=== PATIENT | female | born 1985 | race Caucasian/White ===

== ENCOUNTER 2021-10-12 09:50 | Outpatient (CLI) | payer OTHER | END 2021-10-12 11:18 | disposition home or self-care (01) | LOC: PRENATAL 09:50 | DX: O35.0XX0 Maternal care for (suspected) central nervous system malformation in fetus, not applicable or unspecified (principal); O35.3XX0 Maternal care for (suspected) damage to fetus from viral disease in mother, not applicable or unspecified; Z3A.22 22 weeks gestation of pregnancy ==

== ENCOUNTER 2021-11-11 08:23 | Outpatient (CLI) | payer OTHER | END 2021-11-11 10:15 | disposition home or self-care (01) | LOC: PRENATAL 08:23 | PROVIDERS: ATTEND Obstetrics & Gynecology Maternal & Fetal Medicine | DX: O35.0XX0 Maternal care for (suspected) central nervous system malformation in fetus, not applicable or unspecified (principal); O35.3XX0 Maternal care for (suspected) damage to fetus from viral disease in mother, not applicable or unspecified; O09.529 Supervision of elderly multigravida, unspecified trimester; O24.419 Gestational diabetes mellitus in pregnancy, unspecified control; Z3A.20 20 weeks gestation of pregnancy ==

== ENCOUNTER 2022-03-15 13:45 | Inpatient (IN) | payer OTHER ==
[~2022-03-15] VITALS: Ht 167.6 cm; Wt 68.0 kg
[2022-03-17] MEDS ORDERED: IRON236 MG PO (23:08)
[2022-03-17] MEDS ORDERED: PRENATAL TABLE1 EAC4 PO (23:08)
[2022-03-19] MEDS ORDERED: RHOGAM ULTR1500 UNIT IM ×2 (12:26→12:28)
== END 2022-03-19 17:11 | disposition home or self-care (01) | DRG 807 ==
LOC: EDSTATUS 13:45 → LDR 03-17 22:39 → OB/GYN 03-18 00:56 → SURH 03-25 13:45
PROVIDERS: ADMIT Obstetrics & Gynecology; ATTEND Obstetrics & Gynecology
PROC: 4A1HXCZ Monitoring of Products of Conception, Cardiac Rate, External Approach (ICD-10-PCS; 2022-03-17)
PROC: 10E0XZZ Delivery of Products of Conception, External Approach (ICD-10-PCS; principal; 2022-03-18)
PROC: 0KQM0ZZ Repair Perineum Muscle, Open Approach (ICD-10-PCS; 2022-03-18)
DX: O70.1 Second degree perineal laceration during delivery (principal); Z37.0 Single live birth; Z3A.38 38 weeks gestation of pregnancy; Z20.822 Contact with and (suspected) exposure to COVID-19